=== PATIENT | male | born 1980 | race Two or more races ===

== ENCOUNTER 2025-01-16 08:45 | Emergency (ER) | payer MEDICAID, SELFPAY ==
[2025-01-16 09:02] VITALS: BP 125/80; PULSE 76; RESP 16; TEMP 36.7; O2SAT 97; BMI 31.9
--- NOTE | 2025-01-16 09:10 | XR_ITS ---
EXAMINATION: PA lateral chest 2 views TECHNIQUE: Upright PA lateral chest 2 views Date and time: January 16, 2025, 0931 hours INDICATIONS: Coughing congestion 3 weeks FINDINGS: Normal heart size Lungs are clear. Osseous structures intact IMPRESSION: No active disease
--- NOTE | 2025-01-16 11:12 | EDNOTE_ITS ---
<Statement entered by Giovanna Young MD - 01/27/25 06:33> As co-signing physician, I was present and available for consult prn. I concur with the plan and care as documented by the midlevel provider. ED General RME/HPI General Chief complaint: General Adult/Misc Complain Stated complaint: REALLY BAD CHEST COLD THAT WON'T GO AWAY Time Seen by Provider: 01/16/25 09:09 Arrival date/time: 01/16/25 08:45 44-year-old male with no significant medical problems presents to the emergency department today for complaint of cough ongoing x 1 week patient reports no fever nausea or vomiting no headache dizziness weakness. Limitations: no limitations Related Data Previous Rx's ?Medication ?Instructions ?Recorded ibuprofen 800 mg tablet 800 mg PO TID PRN pain #30 t abs 11/27/20 Ventolin HFA 90 mcg/actuation 2 puff inhalation Q6H UT N 01/16/25 aerosol inhaler (albuterol sulfate) shortness of breat h or wheezing #18 grams benzonatate 100 mg capsule 100 mg PO TID #14 caps 04/11 Allergies Allergy/AdvReac Type Severity Reaction Status Date / Time No Known Allergies Allergy Verified 01/16/25 08:47 Review of Systems Review of Systems Systems Reviewed: All systems reviewed, normal except as documented Constitutional Constitutional: Reports system reviewed and no additional complaints, except as documented, Denies fever(s) and Denies headache(s) Eyes Eyes: Reports system reviewed and no additional complaints, except as documented and Denies blurry vision ENT Ears, Nose, Mouth, and Throat: Reports system reviewed and no additional complaints, except as documented, Denies headache(s), Denies nasal congestion and Denies nasal discharge Cardiovascular Cardiovascular: Reports system reviewed and no additional complaints, except as documented, Denies chest pain and Denies dyspnea Respiratory Respiratory: Reports system reviewed and no additional complaints, except as documented, Reports chest congestion, Reports cough and Denies dyspnea Gastrointestinal Gastrointestinal: Reports system reviewed and no additional complaints, except as documented and Denies abdominal pain Integumentary/Breasts Skin/Breast: Reports system reviewed and no additional complaints, except as documented and Denies rash Neurologic Neurologic: Reports system reviewed and no additional complaints, except as documented, Reports as per HPI and Denies headache(s) Past Medical History Social History SMOKING STATUS: Never smoker ED Exam General Limitations: Present no limitations General appearance: Present alert and in no apparent distress Head Head exam: Present atraumatic, normocephalic and normal inspection Eye Eye exam: Present normal appearance, PERRL and EOMI; Absent conjunctival injection ENT ENT exam: Present normal exam, normal oropharynx and mucous membranes moist Neck Neck exam: Present normal inspection, full ROM and trachea midline Chest Chest inspection: Present normal inspection and symmetric chest wall rise Respiratory Respiratory exam: Present normal lung sounds bilaterally Cardiovascular Cardiovascular exam: Present regular rate, normal rhythm and normal heart sounds Abdominal Exam Abdominal exam: Present soft and normal bowel sounds; Absent distention, tenderness, guarding, rebound or rigidity Extremities Exam Extremities exam: Present normal inspection and full ROM Back Exam Back exam: Present normal inspection and full ROM Neurological Exam Neurological exam: Present alert, oriented X3 and CN II-XII intact Psychiatric Psychiatric exam: Present normal affect and normal mood Skin Skin exam: Present warm, dry, intact and normal color Course Quality Measures none Orders Category Date Time Status XR chest 2V Stat Exams 01/16/25 09:10 Completed Vital Signs Vital signs: Vital Signs Temperature 98.0 F 01/16/25 09:02 Pulse Rate 76 01/16/25 09:02 Respiratory Rate 16 01/16/25 09:02 Blood Pressure 125/80 01/16/25 09:02 Pulse Oximetry (%) 97 01/16/25 09:02 Oxygen Delivery Method Room Air 01/16/25 09:02 O2 saturation 97% room air within normal limits Discharge Plan Plan Patient Disposition: HOME (Self Care) Discharge Disposition comment: Stable Prescriptions/Referrals Prescriptions/Med Rec: New benzonatate 100 mg capsule 100 mg PO TID Qty: 14 0RF albuterol sulfate [Ventolin HFA] 90 mcg/actuation HFA aerosol inhaler 2 puff inhalation Q6H PRN (Reason: shortness of breath or wheezing) Qty: 18 0RF No Action ibuprofen 800 mg tablet 800 mg PO TID PRN (Reason: pain) Qty: 30 0RF Referrals: No Primary/Family,Physician [Primary Care Provider] - In 1 week Problem List Clinical Impression: URI (upper respiratory infection) Patient/Caregiver Discharge Instructions Education Materials: ED URI, Viral, No Abx (Adult) Additional Instructions: Please follow up with your primary care doctor in the next 24-48hrs for any worsening symptoms return here immediately Print Language: Greenlandic Stand Alone Forms: Mariaa Award Info., Work/School Release, Patient Portal Info Letter PA/ICU STAFF NURSE Supervising Physician PA/ALONZO Supervising Physician: Dr. Young MDM Narrative MDM hospital course (for use when minimal MDM required): 44-year-old male with no significant medical problems presents to the emergency department today for complaint of cough ongoing x 1 week patient reports no fever nausea or vomiting no headache dizziness weakness. Clinically patient well-appearing does not appear ill or toxic in no acute distress Imaging obtained no acute emergent findings noted Patient discharged home in no distress to follow-up with primary care doctor in the next 24 to 48 hours and for any worsening symptoms to return to the ER immediately Clinical Information Provided by: patient Medical Records reviewed [facility] Meds/Rx considered, not ordered describe: Rx given Labs/Rad/Tests considered, not ordered None Chronic Illness/Social Conditions which may negatively complicate care or outcome(s)-explain: None or not applicable EKG EKG not done Labs Labs: none Imaging Imaging interpretation: interpreted by me Imaging Interpretation(s): No acute pneumonic infiltrates noted Medication Administration(s) Given Diagnosis Differential Diagnosis ED Complaint MDM: URI, COVID-19, influenza, pneumonia
== END 2025-01-16 11:36 | disposition home or self-care (01) ==
PROVIDERS: Emergency Provider Emergency Medicine
DX: J06.9 Acute upper respiratory infection, unspecified (principal)
CPT/HCPCS: 71046; 99282